=== PATIENT | male | born 1975 | race Caucasian/White ===

== ENCOUNTER 2018-12-19 16:15 | Emergency (ER) | payer SELFPAY ==
[~2018-12-19] VITALS: Ht 182.9 cm; Wt 66.2 kg
[2018-12-19 16:24] VITALS: Ht 182.9 cm; Wt 66.2 kg
[2018-12-19] MEDS ORDERED: SOD CHLORIDE 0.9% 1,000 ML IV STA ×2 (16:48)
[2018-12-19] MEDS ORDERED: ONDANSETRON 4 MG INJ IV STA ×2 (16:48→19:43)
[2018-12-19] MEDS ORDERED: HYDROmorphONE 1 MG/ML SYG IV STA ×2 (16:48→19:43)
[2018-12-19] MEDS ORDERED: METOCLOPRAMIDE 10 MG INJ IV STA (16:48)
[2018-12-19 17:45] VITALS: BP 111/63; PULSE 61; RESP 18
[2018-12-19] MEDS ORDERED: PANT40TA3 PO (19:13)
[2018-12-19] MEDS ORDERED: TRAM50TA PO (19:13)
[2018-12-19] MEDS ORDERED: IOHEXOL 300MG/ML 150 ML BTL ONE (19:22)
[2018-12-19] MEDS ORDERED: SOD CHLORIDE 0.9% 100 ML ONE (19:22)
--- NOTE | 2018-12-19 19:46 | ERD ---
ER Documentation Chief Complaint Chief Complaint abdominal pain vomiting and diarrhea x 3 days, hx ibs HPI This is a 43-year-old male with a history of IBS with multiple episodes of diffuse abdominal pain nausea vomiting and diarrhea. He says of the past 3 days she is had intractable vomiting is unable to keep down any fluids. Denies any blood or bile in his vomit. Diarrhea is watery brown stool. He has a diffuse abdominal cramps. Denies any fever ROS All systems reviewed and are negative except as per history of present illness. Medications Home Meds Reported Medications Tramadol Hcl* (Ultram*) 50 Mg Tablet, 25 MG PO Q4H WHILE AWAKE PRN for PAIN, TAB 12/19/18 Pantoprazole* (Protonix*) 40 Mg Tablet.dr, 40 MG PO DAILY, TAB 12/19/18 Allergies Allergies: Coded Allergies: No Known Allergy (Unverified , 12/19/18) PMhx/Soc Medical and Surgical Hx: pt denies Surgical Hx History of Surgery: No Anesthesia Reaction: No Hx Neurological Disorder: No Hx Respiratory Disorders: No Hx Cardiac Disorders: No Hx Psychiatric Problems: No Hx Miscellaneous Medical Probl: Yes (IBS) Hx Alcohol Use: No Hx Substance Use: No Hx Tobacco Use: No Smoking Status: Never smoker FmHx Family History: No coronary disease Physical Exam Vitals Vital Signs Date Temp Pulse Resp B/P (MAP) Pulse Ox O2 O2 Flow FiO2 Time Delivery Rate 12/19/18 61 18 111/63 95 Room Air 17:45 (79) 12/19/18 98.9 57 18 181/94 99 Room Air 17:16 (123) 12/19/18 100.4 67 18 181/108 98 16:24 (132) Physical Exam Const: Well-developed, well-nourished, actively vomiting Head: Atraumatic, normocephalic Eyes: Normal Conjunctiva, PERRLA, EOMI, normal sclera, no nystagmus ENT: Normal External Ears, Nose and Mouth, moist mucus membranes. Neck: Full range of motion. No meningismus, no lymphadenopathy. Resp: Clear to auscultation bilaterally, no wheezing, rhonchi, rales Cardio: Regular rate and rhythm, no murmurs, S1 S2 present Abd: Soft, diffuse moderate tenderness, non distended. Normal bowel sounds, no guarding or rebound, no pulsitile abdominal masses or bruits Skin: No petechiae or rashes, no ecchymosis , no maculopapular rash Back: No midline or flank tenderness Ext: No cyanosis, or edema, FROM x 4, normal inspection, neurovascularly intact x 4 Neur: Awake and alert, STR 5/5 x 4, sensation intact x 4, no focal findings, cerebellum intact Psych: Normal Mood and Affect Result Diagram: 12/19/18 1723 12/19/18 1723 Results 24 hrs Laboratory Tests Test 12/19/18 17:23 White Blood Count 12.0 10^3/ul Red Blood Count 5.45 10^6/ul Hemoglobin 15.9 g/dl Hematocrit 47.7 % Mean Corpuscular Volume 87.5 fl Mean Corpuscular Hemoglobin 29.2 pg Mean Corpuscular Hemoglobin Concent 33.3 g/dl Red Cell Distribution Width 12.1 % Platelet Count 307 10^3/UL Mean Platelet Volume 8.9 fl Immature Granulocytes % 0.300 % Neutrophils % 87.6 % Lymphocytes % 8.4 % Monocytes % 3.3 % Eosinophils % 0.1 % Basophils % 0.3 % Nucleated Red Blood Cells % 0.0 /100WBC Immature Granulocytes # 0.040 10^3/ul Neutrophils # 10.5 10^3/ul Lymphocytes # 1.0 10^3/ul Monocytes # 0.4 10^3/ul Eosinophils # 0.0 10^3/ul Basophils # 0.0 10^3/ul Nucleated Red Blood Cells # 0.0 10^3/ul Sodium Level 146 mmol/L Potassium Level 3.7 mmol/L Chloride Level 103 mmol/L Carbon Dioxide Level 29 mmol/L Anion Gap 14 Blood Urea Nitrogen 14 mg/dl Creatinine 1.01 mg/dl Est Glomerular Filtrat Rate mL/min > 60 mL/min Glucose Level 142 mg/dl Calcium Level 10.4 mg/dl Total Bilirubin 3.4 mg/dl Direct Bilirubin 0.00 mg/dl Indirect Bilirubin 3.4 mg/dl Aspartate Amino Transf (AST/SGOT) 24 IU/L Alanine Aminotransferase (ALT/SGPT) 22 IU/L Alkaline Phosphatase 65 IU/L Total Protein 8.2 g/dl Albumin 5.2 g/dl Globulin 3.00 g/dl Albumin/Globulin Ratio 1.73 Lipase 60 U/L Current Medications Medications Dose Sig/Ghassan Start Time Status Last (Trade) Ordered Route PRN Stop Time Admin Dose Reason Admin Sodium 1,000 ml @ Q1H STAT 12/19/18 DC 12/19/18 Chloride 1,000 mls/hr IV 16:48 17:09 12/19/18 17:47 1 mg ONCE STAT 12/19/18 DC 12/19/18 Hydromorphone IV 16:48 17:09 HCl 12/19/18 16:50 (Dilaudid) Ondansetron 4 mg ONCE STAT 12/19/18 DC 12/19/18 HCl (Zofran IV 16:48 17:09 Inj) 12/19/18 16:50 10 mg ONCE STAT 12/19/18 DC 12/19/18 Metoclopramid IV 16:48 17:09 e HCl 12/19/18 16:50 (Reglan) Sodium 1,000 ml @ Q1H STAT 12/19/18 DC 12/19/18 Chloride 1,000 mls/hr IV 16:48 20:03 12/19/18 17:47 Sodium 100 ml @ ud STK-MED 12/19/18 DC 12/19/18 Chloride ONCE .ROUTE 19:22 19:50 12/19/18 19:23 Iohexol 150 ml STK-MED 12/19/18 DC 12/19/18 (Omnipaque ONCE .ROUTE 19:22 19:50 300mg/ ml) 12/19/18 19:23 1 mg ONCE STAT 12/19/18 DC 12/19/18 Hydromorphone IV 19:43 20:03 HCl 12/19/18 19:48 (Dilaudid) Ondansetron 4 mg ONCE STAT 12/19/18 DC 12/19/18 HCl (Zofran IV 19:43 20:03 Inj) 12/19/18 19:48 25 mg ONCE ONCE 12/19/18 DC 12/19/18 Diphenhydrami IV 20:30 20:25 ne HCl 12/19/18 20:31 (Benadryl) Procedures/[place] [id number] Radiology Main Line: [phone] DIAGNOSTIC IMAGING REPORT Patient: ALOK ROSAS : 1975 Age: 43 Sex: M MR #: [id number] DOS: 12/19/18 1648 Ordering MD: RHEA GARCIA DO Location: E/R Room/Bed: PROCEDURE: CT Abdomen and Pelvis with contrast. CLINICAL INDICATION: Abdominal pain. TECHNIQUE: CT scan of the abdomen and pelvis with contrast was performed on a multi-detector high-resolution CT scanner. The patient was scanned following the uncomplicated intravenous administration of 100 cc of Omnipaque 300. Coronal and sagittal reformatted images were obtained from the axial source images. Images were reviewed on a high-resolution PACS workstation. The total exam CTDI equals 5.85 mGy and the total exam DLP equals 325.13 mGy-cm. DICOM images are available. One or more of the following dose reduction techniques were used: Automated exposure control. Adjustment of the mA and/or kV according to patient size. Use of iterative reconstruction technique. COMPARISON: None. FINDINGS: CT abdomen: The lung bases are clear. The heart size is normal, without pericardial thickening or effusion. The liver is normal in size and density without focal mass or intrahepatic biliary dilatation. The spleen is normal in size and homogeneous in density. There is a sub centimeter cyst in the superior spleen. The stomach is partially collapsed, but is grossly unremarkable. The pancreas as visualized is normal. The gallbladder is unremarkable. There is no evidence for biliary dilatation. The adrenal glands are symmetric and normal. The kidneys are symmetrically unremarkable as well. No renal calculus or obstructive uropathy or mass lesion is seen. The aorta is of normal caliber. There is no retroperitoneal lymphadenopathy. The bautista hepatis region is clear. There are scattered diverticula in the descending colon without evidence of acute diverticulitis. CT pelvis: The small bowel loops situated within the pelvis are unremarkable. The appendix is normal. The pelvic organs are normal. The pelvic sidewalls and inguinal regions are clear. The sigmoid colon and rectum are remarkable for scattered sigmoid diverticula. No mass, lymphadenopathy, or free fluid is seen. No acute inflammation is seen. The bladder is normal. The surrounding osseous structures are unremarkable. No osteolytic or osteoblastic lesion is detected. IMPRESSION: 1. Scattered diverticula in the left colon without evidence of acute diverticulitis. 2. Normal appendix. 3. Sub-centimeter splenic cyst. RPTAT: HHO .Travon Alvarez MD, MD Date Time Electronically viewed and signed by .Travon Alvarez MD, MD on 12/19/2018 21:15 .O/ CC: RHEA GARCIA DO [id number] Patient received fluids and pain medication is feeling better. Patient was to go home we will try him on some Zofran and Reglan or Phenergan along with some pain medication. He says he has this frequently. If he gets worse he will return Departure Diagnosis: Primary Impression: Vomiting and diarrhea Additional Impression: Abdominal pain Abdominal location: generalized Qualified Codes: R10.84 - Generalized abdominal pain Condition: Stable RHEA GARCIA DO Dec 19, 2018 19:46
[2018-12-19] MEDS ORDERED: DIPHENHYDRAMINE 50 MG INJ IV ONE (20:30)
[2018-12-19] MEDS ORDERED: PROM25TA14 PR (21:44)
[2018-12-19] MEDS ORDERED: HYDR-3980 PO (21:44)
[2018-12-19] MEDS ORDERED: ONDA8TAB14 PO (21:44)
== END 2018-12-19 21:50 | disposition home or self-care (01) ==
LOC: E/R 16:15
DX: R11.10 Vomiting, unspecified (principal); R19.7 Diarrhea, unspecified; R40.2142 Coma scale, eyes open, spontaneous, at arrival to emergency department; R40.2362 Coma scale, best motor response, obeys commands, at arrival to emergency department; R40.2252 Coma scale, best verbal response, oriented, at arrival to emergency department
CPT/HCPCS: 36415; 74177; 80053; 83690; 85025; 96361; 96374; 96375; 96376; 99285; J1170; J1200; J2405; J2765; J7030; Q9967